=== PATIENT | male | born 1995 | race Caucasian/White ===

== ENCOUNTER 2019-05-06 16:16 | Emergency (ER) | payer OTHER | END 2019-05-06 17:05 | disposition home or self-care (01) | LOC: BURERS 16:16 | DX: T63.441A Toxic effect of venom of bees, accidental (unintentional), initial encounter (principal); F32.9 Major depressive disorder, single episode, unspecified; F41.9 Anxiety disorder, unspecified | CPT/HCPCS: 99281 ==